=== PATIENT | female | born 1950 | race Caucasian/White ===

== ENCOUNTER 2017-03-25 16:01 | Emergency (ER) | payer OTHER ==
[2017-03-25] MEDS ORDERED: ONDANSETRON 4 MG/2 ML VIAL ONE (16:33)
[2017-03-25] MEDS ORDERED: FAMOTIDINE 20 MG/NACL/50 ML BAG IV ONE (16:33)
--- NOTE | 2017-03-25 16:38 | EDPHY ---
H & P Time Seen by Provider: 03/25/17 16:16 HPI/ROS: CHIEF COMPLAINT: Allergic reaction HISTORY OF PRESENT ILLNESS: Patient is a 66-year-old female who presents emergency department allergic reaction. She states over the past 3-4 days she has developed a nonproductive cough. It is irritating and persistent. She has also had intermittent headache and nausea. She went saw primary care physician , Dr. Almanzar earlier today. She had a negative strep screen. She was given azithromycin. She filled the prescription and approximately 1 hour after taking the medication she felt as though she was having allergic reaction. She felt throat tightness. This moved up into her tongue, lips and face. She denies worsening shortness of breath. She denies rash. She does not recall taking azithromycin previously. REVIEW OF SYSTEMS: My complete review of systems is negative except as mentioned in the HPI. Past Medical/Surgical History: Jonah's thyroiditis, hypothyroidism Past surgical history: Denies Social history: The patient does not smoke Smoking Status: Never smoked Physical Exam: Vitals noted GENERAL: No acute distress, alert. HEENT: Eyes normal to inspection, normal pharynx, no signs of dehydration. Uvula is midline. No signs of swelling. No lesions. No discharge. NECK: No thyromegaly, Mild bilateral anterior lymphadenopathy, supple. RESPIRATORY: Clear to auscultation bilaterally, no rales, rhonchi or wheezing. Normal CVS: Regular rate and rhythm, no rubs, murmurs, or gallops. ABDOMEN: Soft, nontender, nondistended, no organomegaly. Benign BACK: Normal to inspection, no CVA tenderness. SKIN: Normal color, no rash, warm, dry. No pallor. EXTREMITIES: No pedal edema, no calf tenderness, no Homans sign or cords, no joint swelling. NEURO/PSYCH: Alert and oriented, normal mood and affect, normal motor sensory exam. Constitutional: Initial Vital Signs Temperature (C) 36.7 C 03/25/17 16:05 Heart Rate 89 03/25/17 16:05 Respiratory Rate 15 03/25/17 16:05 Blood Pressure 153/92 H 03/25/17 16:05 O2 Sat (%) 98 03/25/17 16:05 O2 Delivery Mode Room Air Allergies/Adverse Reactions: epinephrine Allergy (Intermediate, Verified 04/09/12 10:26) Penicillins Allergy (Intermediate, Verified 04/09/12 10:25) Sulfa (Sulfonamide Antibiotics) [Sulfa(Sulfonamide Antibiotics)] Allergy ( Intermediate, Verified 04/09/12 10:25) BREVITOL Allergy (Intermediate, Uncoded 04/09/12 10:25) Home Medications: Medication Instructions Recorded No Medications [NO HOME 1 ea MISC 04/09/12 MEDICATIONS] Estradiol 03/25/17 Levothyroxine 03/25/17 Progesterone 03/25/17 Medical Decision Making ED Course/Re-evaluation: In the emergency department I discussed possible etiologies with the patient and her . I answered all her questions. Patient was given Benadryl 25 mg IV and Pepcid 20 mg IV. She appears well on exam I do not feel she needs Solu-Medrol. Chest x-ray was ordered. I rechecked the patient. She was doing well. No signs of allergic reaction. Chest x-ray: No acute disease noted. 1744: I rechecked the patient on numerous occasions. On recheck she was doing well. She had no shortness of breath. She had no nausea vomiting. Her abdominal exam was benign. I discussed the x-ray results. I gave her warnings prior to leaving. At this time I do not feel the patient needs antibiotics based on her chest x-ray. She will return with worsening symptoms. Differential Diagnosis: My differential includes but is not limited to bronchitis, pneumonia, viral illness, pharyngitis, strep pharyngitis, dehydration, allergic reaction, anaphylaxis - Data Points Medications Given: Discontinued Medications Diphenhydramine HCl (Benadryl Injection) 25 mg IVP EDNOW ONE Stop: 03/25/17 16:42 Last Admin: 03/25/17 16:41 Dose: 25 mg Famotidine/Sodium Chloride (Pepcid 20 Mg (Premix)) 50 mls @ 200 mls/hr IV EDNOW ONE Stop: 03/25/17 16:55 Last Admin: 03/25/17 16:41 Dose: 50 mls Ondansetron HCl (Zofran) 4 mg IVP EDNOW ONE Stop: 03/25/17 16:42 Last Admin: 03/25/17 17:08 Dose: Not Given Departure - Departure Disposition: [facility] Acute Clinical Impression: Bronchitis Condition: Good Instructions: Acute Bronchitis (ED) Additional Instructions: Return with increasing shortness of breath, fever, cough, rash, facial swelling or any other concerns. Referrals: Michael Ho MD [Primary Care Provider] - 2-3 days, if not improved
[2017-03-25] MEDS ORDERED: FAMOTIDINE 20 MG/NACL 50 ML IV ONE (16:41)
[2017-03-25] MEDS ORDERED: ONDANSETRON 4 MG/2 ML VIAL IVP ONE (16:41)
[2017-03-25 17:17] VITALS: RESP 16; O2SAT 94
[2017-03-25] MEDS ORDERED: ONDANSETRON 4MG PREPACK#2 BTL TAKEHOME ONE (17:48)
[2017-03-25 18:08] VITALS: BP 120/74; PULSE 88; TEMP 98.4
== END 2017-03-25 18:07 | disposition still patient (30) ==
DX: J40 Bronchitis, not specified as acute or chronic (principal)
CPT/HCPCS: 71020; 96374; 96375; 99284; J1200; J2405

== ENCOUNTER 2017-03-28 16:12 | Emergency (ER) | payer OTHER ==
--- NOTE | 2017-03-28 17:45 | EDPHY ---
H & P Time Seen by Provider: 03/28/17 17:37 HPI/ROS: CHIEF COMPLAINT: Allergic reaction HISTORY OF PRESENT ILLNESS: This is a 66-year-old female presenting to the emergency department complaining of allergic reaction. Patient states she was seen here on 03/25/2017 allergy related to azithromycin that she was taking for bronchitis. Patient stated she took another dose yesterday, started having similar symptoms as she did initially on the 03/25/2017 throat tightness, " feels like my face is swollen" no shortness of breath. REVIEW OF SYSTEMS: Constitutional: No fever, no chills. Eyes: No blurred vision ENT: No sore throat. Throat tightness Cardiovascular: No chest pain, no palpitations. Respiratory: No cough, no shortness of breath. Gastrointestinal: No abdominal pain, no vomiting. Genitourinary: No difficulty urinating Musculoskeletal: No back pain. Skin: No rashes. Itchy skin Neurological: No headache. Smoking Status: Never smoked Physical Exam: General Appearance: Alert, no distress. Eyes: Pupils equal and round no pallor or injection. ENT, Mouth: Mucous membranes moist. No angioedema Respiratory: There are no retractions, nonlabored respiratory effort lungs are clear to auscultation. Cardiovascular: Regular rate and rhythm. Gastrointestinal: Abdomen is soft and nontender, no masses, bowel sounds normal. Neurological: No focal deficits. Cranial nerves intact Skin: Warm and dry, no rashes. Musculoskeletal: Neck is supple nontender. Extremities: symmetrical, full range of motion. Psychiatric: Patient is oriented X 3, there is no agitation. Acting appropriate Constitutional: Initial Vital Signs Temperature (C) 36.6 C 03/28/17 16:16 Heart Rate 90 03/28/17 16:16 Respiratory Rate 18 03/28/17 16:16 Blood Pressure 142/99 H 03/28/17 16:16 O2 Sat (%) 97 03/28/17 16:16 O2 Delivery Mode Room Air Allergies/Adverse Reactions: epinephrine Allergy (Intermediate, Verified 03/28/17 16:15) Penicillins Allergy (Intermediate, Verified 03/28/17 16:15) Sulfa (Sulfonamide Antibiotics) [Sulfa(Sulfonamide Antibiotics)] Allergy ( Intermediate, Verified 03/28/17 16:15) azithromycin Allergy (Verified 03/28/17 16:15) BREVITOL Allergy (Intermediate, Uncoded 04/09/12 10:25) Home Medications: Medication Instructions Recorded Levothyroxine 03/25/17 Progesterone 03/25/17 predniSONE 40 mg PO DAILY #10 tab 03/28/17 Medical Decision Making ED Course/Re-evaluation: Discussed ED plan of care: IV Benadryl IV Solu-Medrol IV ranitidine 1814: Patient re-evaluation patient states feeling better no short of breath" I do not feel like my throat is tight, I do not feel like my face is swollen " 1820: Discharge home-->stable, discussed discharge instructions the patient Differential Diagnosis: Other differential diagnosis considered but not limited to anaphylaxis, hypoxia , and angioedema - Data Points Medications Given: Discontinued Medications Diphenhydramine HCl (Benadryl Injection) 25 mg IVP EDNOW ONE Stop: 03/28/17 17:47 Last Admin: 03/28/17 18:07 Dose: 25 mg Methylprednisolone Sodium Succinate (Solu-Medrol) 125 mg IVP EDNOW ONE Stop: 03/28/17 17:47 Last Admin: 03/28/17 18:07 Dose: 125 mg Ranitidine HCl (Zantac) 50 mg IVP EDNOW ONE Stop: 03/28/17 17:47 Last Admin: 03/28/17 18:08 Dose: 50 mg Departure - Departure Disposition: Home, Routine, Self-Care Clinical Impression: Allergic reaction Qualifiers: Encounter type: subsequent encounter Qualified Code(s): T78.40XD - Allergy, unspecified, subsequent encounter Condition: Good Instructions: Urticaria (ED), Antibiotic Medication Allergy (ED) Additional Instructions: Discussed additional instructions 1. Continue taking Benadryl 25-50 mg every 6-8 hours as needed for the next few days 2. You can also take Pepcid or Zantac daily as this also is a histamine tam to decrease allergic reaction Referrals: Michael Ho MD [Primary Care Provider] - As per Instructions Prescriptions: predniSONE 40 mg PO DAILY #10 tab
[2017-03-28] MEDS ORDERED: methylPREDNISolone SOD SUCC 125 MG/2 ML VIAL IVP ONE (17:46)
[2017-03-28] MEDS ORDERED: RANITIDINE 50 MG/2 ML VIAL IVP ONE (17:46)
[2017-03-28 18:27] VITALS: BP 143/73; PULSE 80; RESP 16; TEMP 97.7; O2SAT 98
== END 2017-03-28 18:25 | disposition home or self-care (01) ==
DX: T78.40XD Allergy, unspecified, subsequent encounter (principal)
CPT/HCPCS: 96374; 96375; 99284; J1200; J2780

== ENCOUNTER 2017-11-28 09:36 | Emergency (ER) | payer OTHER ==
[2017-11-28 09:49] VITALS: RESP 16
--- NOTE | 2017-11-28 10:25 | EDPHY ---
H & P Stated Complaint: L sided neck pain x 3 wks after turning head;radiates to shoulder/back;chir Time Seen by Provider: 11/28/17 10:24 HPI/ROS: HPI: This is a 67-year-old female who presents with Chief Complaint: L sided neck pain x 3 wks after turning head;radiates to shoulder/back;chir Location: Left-sided neck Quality: Pain Duration: 3 weeks Signs and Symptoms: No bleeding, + radiation, no numbness, no weakness, no tingling, no incontinence, no decreased range of motion, no swelling, + pain Timing: Waxes and wane Severity: Moderate Context: Patient has a history of Jonah's was skiing approximately 3 weeks ago when she her to [place] coming up on her left side and she quickly turned her neck. She felt immediate discomfort, that was radiating in nature to the left shoulder and mid back. She continued her run and skied for several more hours. Within 1-2 days, she developed neck spasms on the left side that worsened with turning her neck to the left. She has been trying to performs stretching exercises, taking [id number] NSAIDs with transient relief. She went to the chiropractor yesterday and had an adjustment performed. She felt relief for 4 hr. Upon waking up this morning she felt left-sided, muscle spasm and discomfort again. She is requesting imaging of her neck. She denies radiation/paresthesias/headache. Her also return from [place] and had a viral illness and she is requesting influenza test. She denies fever/chills/ fatigue/cough/neck stiffness. Modifying Factors: See above Comment: ROS: see HPI Constitutional: No fever, no chills, no weight loss Eyes: No blurred vision Respiratory: No shortness of breath, no cough Cardiovascular: No chest pain Gastrointestinal: No nausea, no vomiting no diarrhea Genitourinary: No dysuria Extremities: No myalgias Neurologic: No weakness, no numbness Skin: No rashes Hematologic: No bruising, no bleeding MEDICAL/SURGICAL/SOCIAL HISTORY: Medical history: Jonah's Surgical history: Denies Social history: . Retired CONSTITUTIONAL: Well-appearing elderly white female who is physically fit, awake and alert, no obvious distress HEENT: Atraumatic and normocephalic. NECK: supple, no midline tenderness, flexion 45 degrees, extension 45 degrees, right and left lateral flexion 45 degrees. No meningismus. Mild reproducible tenderness on the left lateral muscles of her neck; no obvious spasm. Cardiovascular: Normal S1/S2, regular rate, regular rhythm, without murmur rub or gallop. PULMONARY/CHEST: Symmetrical and nontender. no crepitus. Clear to auscultation bilaterally. Good air movement. No accessory muscle usage. ABDOMEN: Soft, nondistended, nontender, no ecchymosis. BACK: No midline tenderness, no paraspinous spasm, deep tendon reflexes 2/2, no pain with straight leg raise EXTREMITIES: 2/2 pulses, no deformities, no clubbing, no cyanosis or edema. NEUROLOGICAL: no focal neuro deficits. GCS 15. Light touch sensation intact. SKIN: Warm and dry, no erythema. no rash. Good capillary refill. Source: Patient Exam Limitations: No limitations - Personal History Current Tetanus Diphtheria and Acellular Pertussis (TDAP): Yes - Medical/Surgical History Hx Asthma: No Hx Chronic Respiratory Disease: No Hx Diabetes: No Hx Cardiac Disease: No Hx Renal Disease: No Hx Cirrhosis: No Hx Alcoholism: No Hx HIV/AIDS: No Hx Splenectomy or Spleen Trauma: No Other PMH: Hashimotos - Social History Smoking Status: Never smoked Constitutional: Initial Vital Signs Temperature (C) 36.5 C 11/28/17 09:40 Heart Rate 86 11/28/17 09:40 Respiratory Rate 16 11/28/17 09:40 Blood Pressure 135/103 H 11/28/17 09:40 O2 Sat (%) 98 11/28/17 09:40 O2 Delivery Mode Room Air Allergies/Adverse Reactions: epinephrine Allergy (Intermediate, Verified 11/28/17 09:45) Penicillins Allergy (Intermediate, Verified 11/28/17 09:45) Sulfa (Sulfonamide Antibiotics) [Sulfa(Sulfonamide Antibiotics)] Allergy ( Intermediate, Verified 11/28/17 09:45) azithromycin Allergy (Verified 11/28/17 09:45) BREVITOL Allergy (Intermediate, Uncoded 04/09/12 10:25) Home Medications: Medication Instructions Recorded Levothyroxine 03/25/17 Lidocaine 5% [Lidoderm 5% Patch 1 ea TD DAILY #7 patch 11/28/17 (*)] methylPREDNISolone [Medrol Dose 1 each PO AD #0 ea 11/28/17 Ferny] Medical Decision Making - Diagnostics Imaging Results: Imaging Impressions Cervical Spine X-Ray 11/28/17 10:30 Impression: 1. Negative for fracture. 2. Straightening of the cervical curvature suggests muscle spasm. 3. Minimal spondylolisthesis is noted. If symptoms persist, MRI could be considered for further evaluation. ED Course/Re-evaluation: Cervical x-rays, influenza test per patient request although has no symptoms, IM medication, topical medication ordered Patient given IM Decadron 8 mg and Lidoderm patch applied to the left side of her neck. No signs of neurovascular compromise/tenting of skin/compartment syndrome/ extremities and joints examined above and below area of concern and are neurovascularly intact. Cervical x-ray my read shows straightening of lordosis consistent with muscle spasm; minimal degenerative disc disease Reassessed patient who reports she has adequate relief This patient was seen under the supervision of my secondary supervising physician. I evaluated care for this patient independently. Differential Diagnosis: Differential diagnosis includes but is not limited to cervical spondylosis, cervical muscle spasm, cervical strain, cervical degenerative disc disease. - Data Points Laboratory Results: 11/28/17 10:49 Nasal Influenza A PCR Pending Nasal Influenza B PCR Pending Medications Given: Lidocaine (Lidoderm 5%) 1 ea TD DAILY FORD Stop: 05/28/18 08:59 Last Admin: 11/28/17 10:53 Dose: 1 ea Discontinued Medications Dexamethasone (Decadron Injection) 8 mg IM EDNOW ONE Stop: 11/28/17 10:31 Last Admin: 11/28/17 10:52 Dose: 8 mg Departure - Departure Disposition: Home, Routine, Self-Care Clinical Impression: Strain of cervical portion of left trapezius muscle, Cervical paraspinal muscle spasm Condition: Good Instructions: Cervical Strain (ED) Additional Instructions: Cervical x-ray today shows: 1. Negative for fracture. 2. Straightening of the cervical curvature suggests muscle spasm. 3. Minimal spondylolisthesis is noted. Please take 6 days of Medrol Dosepak. Encourage fluid intake while taking steroids. Continue to stretch your muscles and take Tylenol 650 mg every 4 hours and/or Ibuprofen 600 mg every 8 hours with food as needed for pain. Follow up with [facility] or PCP in 1-2 weeks if symptoms persist or worsen at which time they will evaluate and recommend with you if conservative management versus MRI cervical spine outpatient is indicated. Referrals: Michael Ho MD [Primary Care Provider] - As per Instructions Prescriptions: Lidocaine 5% [Lidoderm 5% Patch (*)] 1 ea TD DAILY #7 patch methylPREDNISolone [Medrol Dose Ferny] 1 each PO AD #0 ea
[2017-11-28] MEDS ORDERED: DEXAMETHASONE 10 MG/ML VIAL IM ONE (10:30)
[2017-11-28] MEDS ORDERED: LIDOCAINE 5% 1 EA PATCH TD ONE (10:40)
[2017-11-28 11:38] VITALS: BP 145/84; PULSE 80; TEMP 98.1; O2SAT 94
[2017-11-28] MEDS ORDERED: PATCH REMOVAL 1 EA PATCH TD SCH (21:00)
[2017-11-29] MEDS ORDERED: LIDOCAINE 5% 1 EA PATCH TD SCH (09:00)
== END 2017-11-28 11:37 | disposition home or self-care (01) ==
DX: S16.1XXA Strain of muscle, fascia and tendon at neck level, initial encounter (principal); X58.XXXA Exposure to other specified factors, initial encounter
CPT/HCPCS: 72040; 96372; 99284; J1100

== ENCOUNTER → 2017-12-01 | Outpatient (CLI) | payer OTHER | LOC: FIMAGING 15:11 | PROVIDERS: ATTEND Family Medicine Sports Medicine | DX: M50.30 Other cervical disc degeneration, unspecified cervical region (principal); M12.88 Other specific arthropathies, not elsewhere classified, other specified site; M99.71 Connective tissue and disc stenosis of intervertebral foramina of cervical region ==

== ENCOUNTER 2018-08-30 06:54 | Observation (INO) | payer OTHER ==
[2018-08-30] MEDS ORDERED: DOCUSATE SODIUM 100 MG CAP PO ONE (07:36)
--- NOTE | 2018-08-30 07:42 | EDPHY ---
H & P Time Seen by Provider: 08/30/18 07:29 HPI/ROS: CHIEF COMPLAINT: Constipation HISTORY OF PRESENT ILLNESS: The patient is a 68-year-old female who had a facial pill surgery last week. She took Percocet for 3 days because of the procedure. She states her face, although significantly red peeling, is healing normally. Patient states she has tried numerous holistic interventions including supplements and meditation. She has not had a bowel movement for 8 days. She feels bloated. She has abdominal discomfort because of this. She denies measured fever. No vomiting. No nausea. She is still able to urinate. REVIEW OF SYSTEMS: 10 systems were reveiwed and are negative with the exception of the elements mentioned in the history of present illness. Past Medical/Surgical History: Includes Jonah's thyroiditis Past surgical history: Facial surgery Social history: Patient does not smoke Smoking Status: Never smoked Physical Exam: Vitals noted. 37.0, 103 GENERAL: No acute distress, alert. HEENT: Eyes normal to inspection, normal pharynx, no signs of dehydration. The patient has significant redness and peeling diffusely on her face NECK: Normal, supple. RESPIRATORY: Clear to auscultation bilaterally, no rales, rhonchi or wheezing. CVS: Regular rate and rhythm, no rubs, murmurs, or gallops. ABDOMEN: Soft, nontender, no organomegaly. Patient has no significant distension. Positive bowel sounds. BACK: Normal to inspection, no CVA tenderness. SKIN: Normal color, no rash, warm, dry. No pallor. EXTREMITIES: No pedal edema, no joint swelling. NEURO/PSYCH: Alert and oriented, normal mood and affect, normal motor sensory exam. Constitutional: Initial Vital Signs Temperature (C) 37.0 C 08/30/18 06:56 Heart Rate 103 H 08/30/18 06:56 Respiratory Rate 18 08/30/18 06:56 Blood Pressure 126/90 H 08/30/18 06:56 O2 Sat (%) 97 08/30/18 06:56 O2 Delivery Mode Room Air Allergies/Adverse Reactions: epinephrine Allergy (Intermediate, Verified 08/30/18 06:58) Penicillins Allergy (Intermediate, Verified 08/30/18 06:58) Sulfa (Sulfonamide Antibiotics) [Sulfa(Sulfonamide Antibiotics)] Allergy ( Intermediate, Verified 08/30/18 06:58) azithromycin Allergy (Verified 08/30/18 06:58) BREVITOL Allergy (Intermediate, Uncoded 08/30/18 06:58) Home Medications: Medication Instructions Recorded Docusate Sodium [Colace 100 MG (*)] 100 mg PO BID #20 cap 08/30/18 Medical Decision Making - Diagnostics Imaging Results: Imaging Impressions Abdomen/Pelvis CT 08/30/18 09:55 Impression: 1. Significant stool within the rectal vault with moderate stool in the remainder of the colon, consistent with constipation. Might consider disimpaction. 2. Nonspecific hypodense lesions within the right hepatic lobe, the largest measuring 3.8 x 1.9 cm. These may represent hepatic masses versus focal fat ( though not in a typical location for this). Recommend either triphasic CT or MRI. 3. Lobulated uterus, likely related to underlying fibroid disease. Findings and recommendations discussed with ARLETTE YEBOAH at 1038 hour, 08/30/2018. ED Course/Re-evaluation: In the emergency department I discussed possible etiologies with the patient. I answered all her questions. She was given Colace 100 mg orally. She was given a fleets enema. Patient did not want to receive GoLYTELY. After receiving the enema the patient was re-evaluated. She continued to feel constipated. Her abdomen was still soft nontender. The patient did not want an IV placed. She had no laboratory shows studies drawn. A 2nd enema was ordered. Patient began to have rectal cramping during administration and this was discontinued. The nurse reported that catheter went in freely. There was no resistance or signs of stool impaction. 950: I rechecked the patient. She was having rectal cramping. She complained of abdominal discomfort. She did not want an IV placed. She did accept oral Zofran and GoLYTELY. She stated that she has previously had nausea and vomiting with go likely but she is willing to attend medication. Because of her ongoing symptoms CT scan was ordered. She consented to this. Abdominal CT: Please refer the dictated report. Patient has noted hepatic lesions. These will need further follow-up. Patient is also noted to have constipation. 1100: Patient still has abdominal discomfort. She has mild diffuse tenderness to palpation. Differential Diagnosis: My differential includes but is not limited to small-bowel obstruction, perforation, intussusception, volvulus, mass, malignancy, constipation - Data Points Medications Given: Discontinued Medications Docusate Sodium (Colace) 100 mg PO EDNOW ONE Stop: 08/30/18 07:37 Last Admin: 08/30/18 08:04 Dose: 100 mg Ibuprofen (Motrin) 600 mg PO EDNOW ONE Stop: 08/30/18 10:09 Last Admin: 08/30/18 10:08 Dose: 600 mg Ondansetron HCl (Zofran Odt) 4 mg PO EDNOW ONE Stop: 08/30/18 09:55 Last Admin: 08/30/18 10:06 Dose: 4 mg Departure - Departure Disposition: [facility] Inpatient Acute Clinical Impression: Abdominal pain Qualifiers: Abdominal location: generalized Qualified Code(s): R10.84 - Generalized abdominal pain Constipation Qualifiers: Constipation type: unspecified constipation type Qualified Code(s): K59.00 - Constipation, unspecified Condition: Fair Instructions: Constipation (DC), Abdominal Pain (ED) Additional Instructions: Return with increasing pain, distention or any other concerns. Referrals: Michael Ho MD [Primary Care Provider] - 2-3 days, if not improved Prescriptions: Docusate Sodium [Colace 100 MG (*)] 100 mg PO BID #20 cap
[2018-08-30] MEDS ORDERED: PEG 3350/NA SULF,BICARB,CL/KCL (GAVILYTE-G) 4000 ML BTL PO ONE (09:54)
[2018-08-30] MEDS ORDERED: ONDANSETRON DISINTEGRATING 4 MG TAB PO ONE (09:54)
[2018-08-30] MEDS ORDERED: IBUPROFEN 600 MG TAB PO ONE ×2 (09:55→10:08)
[2018-08-30] MEDS ORDERED: ONDANSETRON DISINTEGRATING 4 MG TAB ONE (09:55)
[2018-08-30] MEDS ORDERED: NS 500 ML IV ONE (11:03)
[2018-08-30] MEDS ORDERED: ONDANSETRON DISINTEGRATING 4 MG TAB PO PRN (11:20)
[2018-08-30] MEDS ORDERED: ONDANSETRON 4 MG/2 ML VIAL IVP PRN (11:20)
[2018-08-30] MEDS ORDERED: POLYETHYLENE GLYCOL 3350 17 GM PKT PO PRN (11:21)
[2018-08-30] MEDS ORDERED: MAGNESIUM HYDROXIDE 30 ML UDCUP PO PRN (11:21)
[2018-08-30] MEDS ORDERED: BISACODYL 10 MG SUPP PR PRN (11:21)
[2018-08-30] MEDS ORDERED: LACTULOSE 20 GM/30 ML UDCUP PO PRN (11:21)
[2018-08-30] MEDS ORDERED: MAGNESIUM CITRATE 300 ML BOTTLE PO ONE (11:22)
[2018-08-30 12:00] LABS: PLATELET COUNT 339 10^3/uL (150-400)
--- NOTE | 2018-08-30 13:59 | PDGENHP ---
History and Physical - Chief Complaint Constipation - History of Present Illness Jessica Sosa is a 68 yo F with no significant PMHx who presents to [facility] for constipation. She reports that she had facial peel surgery last Monday and was prescribed Percocet whic she took for 3 days because of pain from the procedure. She reports that she has not had a BM now for 8 days. She has tried multiple holistic interventions including supplements and abdominal massage. She reports she has been passing gas and has been experiencing bloating and lower abdominal cramping. She denies f/c, n/v, chest pain, sob. History Information - Allergies/Home Medication List Allergies/Adverse Reactions: epinephrine Allergy (Intermediate, Verified 08/30/18 06:58) Penicillins Allergy (Intermediate, Verified 08/30/18 06:58) Sulfa (Sulfonamide Antibiotics) [Sulfa(Sulfonamide Antibiotics)] Allergy ( Intermediate, Verified 08/30/18 06:58) azithromycin Allergy (Verified 08/30/18 06:58) BREVITOL Allergy (Intermediate, Uncoded 08/30/18 06:58) Home Medications: Levothyroxine [Synthroid 88 mcg (*)] 88 mcg PO DAILY06 08/30/18 [Last Taken ] Lidocaine 5% [Lidocaine 5% Oint] 1 crystal TP DAILY 08/30/18 [Last Taken 08/29/18] I have personally reviewed and updated: family history, medical history, social history, surgical history - Past Medical History no pertinent PMH - Surgical History Additional surgical history: Facial peel - Family History Positive for: non-pertinent - Social History Smoking Status: Never smoked Review of Systems Review of Systems: ROS: 10pt was reviewed & negative except for what was stated in HPI & below Physical Exam Physical Exam: Temp Pulse Resp BP Pulse Ox 36.6 C 69 16 124/86 H 98 08/30/18 12:39 08/30/18 12:39 08/30/18 12:39 08/30/18 12:39 08/30/18 12:39 Lab Data & Imaging Review 08/30/18 11:54 08/30/18 11:54 WBC 9.04 10^3/uL (3.80-9.50) 08/30/18 11:54 RBC 5.01 10^6/uL (4.18-5.33) 08/30/18 11:54 Hgb 14.0 g/dL (12.6-16.3) 08/30/18 11:54 Hct 42.2 % (38.0-47.0) 08/30/18 11:54 MCV 84.2 fL (81.5-99.8) 08/30/18 11:54 MCH 27.9 pg (27.9-34.1) 08/30/18 11:54 MCHC 33.2 g/dL (32.4-36.7) 08/30/18 11:54 RDW 14.0 % (11.5-15.2) 08/30/18 11:54 Plt Count 339 10^3/uL (150-400) 08/30/18 11:54 MPV 8.9 fL (8.7-11.7) 08/30/18 11:54 Neut % (Auto) 73.4 % (39.3-74.2) 08/30/18 11:54 Lymph % (Auto) 16.9 % (15.0-45.0) 08/30/18 11:54 Cole % (Auto) 9.0 % (4.5-13.0) 08/30/18 11:54 Eos % (Auto) 0.3 % (0.6-7.6) L 08/30/18 11:54 Baso % (Auto) 0.1 % (0.3-1.7) L 08/30/18 11:54 Nucleat RBC Rel Count 0.0 % (0.0-0.2) 08/30/18 11:54 Absolute Neuts (auto) 6.63 10^3/uL (1.70-6.50) H 08/30/18 11:54 Absolute Lymphs (auto) 1.53 10^3/uL (1.00-3.00) 08/30/18 11:54 Absolute Monos (auto) 0.81 10^3/uL (0.30-0.80) H 08/30/18 11:54 Absolute Eos (auto) 0.03 10^3/uL (0.03-0.40) 08/30/18 11:54 Absolute Basos (auto) 0.01 10^3/uL (0.02-0.10) L 08/30/18 11:54 Absolute Nucleated RBC 0.00 10^3/uL (0-0.01) 08/30/18 11:54 Immature Gran % 0.3 % (0.0-1.1) 08/30/18 11:54 Immature Gran # 0.03 10^3/uL (0.00-0.10) 08/30/18 11:54 Sodium 137 mEq/L (135-145) 08/30/18 11:54 Potassium 4.1 mEq/L (3.3-5.0) 08/30/18 11:54 Chloride 101 mEq/L (97-110) 08/30/18 11:54 Carbon Dioxide 29 mEq/l (22-31) 08/30/18 11:54 Anion Gap 7 mEq/L (6-14) 08/30/18 11:54 BUN 17 mg/dL (7-23) 08/30/18 11:54 Creatinine 0.8 mg/dL (0.6-1.0) 08/30/18 11:54 Estimated GFR > 60 08/30/18 11:54 Glucose 103 mg/dL (70-100) H 08/30/18 11:54 Calcium 8.9 mg/dL (8.5-10.4) 08/30/18 11:54 Total Bilirubin 0.6 mg/dL (0.1-1.4) 08/30/18 11:54 Conjugated Bilirubin 0.1 mg/dL (0.0-0.5) 08/30/18 11:54 Unconjugated Bilirubin 0.5 mg/dL (0.0-1.1) 08/30/18 11:54 AST 38 IU/L (14-46) 08/30/18 11:54 ALT 51 IU/L (9-52) 08/30/18 11:54 Alkaline Phosphatase 77 IU/L (38-126) 08/30/18 11:54 Total Protein 6.4 g/dL (6.3-8.2) 08/30/18 11:54 Albumin 3.6 g/dL (3.5-5.0) 08/30/18 11:54 Lipase 45 IU/L (23-300) 08/30/18 11:54 Assessment & Plan Assessment: Abdominal pain (Acute) Constipation (Acute) - 2/2 to opiate medications given periprocedural - CT A/P on admission shows stool in rectal vault w/ moderate stool in remainder of colon, consistent with constipation, no SBO or ileus noted - S/p Mg Citrate, Enema in ED without effect - Ordered Polyethylene Glycol (GoLytely) in ED, will continue - Bowel Protocol ordered as well - If not effective will give additional Mg Citrate and Enema/suppository Hepatic Lesions - Incidental finding on CT, showing hypodense lesions in R hepatic lobe, 3.8x1.9 cm, representing hepatic mass vs. - Will f/u as outpatient with Triphasic CT vs. MRI to further evaluate PPx: SCDs FEN: NPO, water is ok Code: FULL Dispo: Admit to Observation
[2018-08-30] MEDS ORDERED: LORazepam 2 MG/ML INJ IVP ONE (17:07)
[2018-08-30] MEDS: ACETAMINOPHEN 325 MG TAB PO PRN (21:01)
[2018-08-30] MEDS: SENNOSIDES/DOCUSATE SODIUM TAB PO SCH (21:01)
[2018-08-31] MEDS: ACETAMINOPHEN 325 MG TAB PO PRN (07:51)
[2018-08-31] MEDS: SENNOSIDES/DOCUSATE SODIUM TAB PO SCH ×2 (08:35→20:05)
--- NOTE | 2018-08-31 09:58 | ASMTCMCOM ---
CM Note CM Note Notes: Reviwed chart, pt came in for constipation secondary to percocet prescribed after a facial peel procedure. Anticipate she will dc home independent when medically stable. CM available for any changes. DC Plan: Independent Date Signed: 08/31/2018 09:58 AM Electronically Signed By:Angelina Quintanilla RN
--- NOTE | 2018-08-31 13:45 | PDDCSUM ---
Discharge Summary Discharge Summary: Date of Admission: 08/30/2018 Date of Discharge: 08/31/2018 Consults: N/A Procedure: CT A/P Hospital Course Problem List: Abdominal pain (Acute) Constipation (Acute) - 2/2 to opiate medications given periprocedural - CT A/P on admission shows stool in rectal vault w/ moderate stool in remainder of colon, consistent with constipation, no SBO or ileus noted - S/p Mg Citrate, Enema in ED without effect - Ordered Polyethylene Glycol (GoLytely) in ED, patient had >5 BMs overnight - Continue Senna/Colace BID, Miralax qd at home Hepatic Lesions - Incidental finding on CT, showing hypodense lesions in R hepatic lobe, 3.8x1.9 cm, representing hepatic mass vs. - Will f/u as outpatient with Triphasic CT vs. MRI to further evaluate Time spent on discharge was >35 minutes with >50% of time spent on patient education and counseling
--- NOTE | 2018-08-31 14:26 | HOSPPROG ---
Hospitalist Progress Note Assessment/Plan: Abdominal pain (Acute) Constipation (Acute) - 2/2 to opiate medications given periprocedural - CT A/P on admission shows stool in rectal vault w/ moderate stool in remainder of colon, consistent with constipation, no SBO or ileus noted - S/p Mg Citrate, Enema in ED without effect - Ordered Polyethylene Glycol (GoLytely) in ED, patient had >5 BMs overnight - Continue Senna/Colace BID, Miralax qd Hepatic Lesions - Incidental finding on CT, showing hypodense lesions in R hepatic lobe, 3.8x1.9 cm, representing hepatic mass vs. - Will f/u as outpatient with Triphasic CT vs. MRI to further evaluate Dispo: Patient having bowel incontinence and not able to manage at home due to difficult access to restroom, will monitor overnight and d/c in the morning if improved Subjective: Pateint reports bowle incontinence Objective: Vital Signs Temp Pulse Resp BP Pulse Ox 37.4 C 80 16 123/90 H 89 L 08/31/18 11:10 08/31/18 11:10 08/31/18 11:10 08/31/18 11:10 08/31/18 11:10 Laboratory Results 08/30/18 11:54 08/30/18 11:54 08/30/18 08/31/18 09/01/18 05:59 05:59 05:59 Intake Total 500 Output Total 50 Balance 450 - Physical Exam Constitutional: no apparent distress Eyes: PERRL Ears, Nose, Mouth, Throat: moist mucous membranes Cardiovascular: regular rate and rhythym Respiratory: no respiratory distress Gastrointestinal: soft, non-tender abdomen Skin: abrasion Musculoskeletal: full muscle strength Neurologic: AAOx3 Psychiatric: interacting appropriately ICD10 Worksheet Patient Problems: Problems Problem Status Onset Abdominal pain Acute Constipation Acute
[2018-09-01] MEDS: SENNOSIDES/DOCUSATE SODIUM TAB PO SCH (08:25)
--- NOTE | 2018-09-01 12:38 | HOSPPROG ---
Hospitalist Progress Note Assessment/Plan: Abdominal pain (Acute) Constipation (Acute) - 2/2 to opiate medications given periprocedural - CT A/P on admission shows stool in rectal vault w/ moderate stool in remainder of colon, consistent with constipation, no SBO or ileus noted - S/p Mg Citrate, Enema in ED without effect - S/p Polyethylene Glycol (GoLytely) in ED, patient had >5 BMs overnight yesterday - Now patent complaining of bowel incontinence with loose BMs, will d/c laxatives today and continue to observe Hepatic Lesions - Incidental finding on CT, showing hypodense lesions in R hepatic lobe, 3.8x1.9 cm, representing hepatic mass vs. - Will f/u as outpatient with Triphasic CT vs. MRI to further evaluate Dispo: Patient having bowel incontinence and not able to manage at home due to difficult access to restroom, will monitor overnight and d/c in the morning if improved off of laxatives Subjective: Patient reports 2 episodes of bowel incontinence overnight Objective: Vital Signs Temp Pulse Resp BP Pulse Ox 36.5 C 72 18 137/94 H 96 09/01/18 12:00 09/01/18 12:00 09/01/18 12:00 09/01/18 12:00 09/01/18 12:00 Laboratory Results 08/30/18 11:54 08/30/18 11:54 08/31/18 09/01/18 09/02/18 05:59 05:59 04:59 Intake Total 500 Output Total 50 500 Balance 450 -500 - Physical Exam Constitutional: no apparent distress Eyes: PERRL Ears, Nose, Mouth, Throat: moist mucous membranes Cardiovascular: regular rate and rhythym Respiratory: no respiratory distress Gastrointestinal: soft, non-tender abdomen Genitourinary: no bladder tenderness Skin: abrasion Musculoskeletal: full muscle strength Neurologic: AAOx3 Psychiatric: interacting appropriately ICD10 Worksheet Patient Problems: Problems Problem Status Onset Abdominal pain Acute Constipation Acute
[2018-09-02] MEDS ORDERED: LEVOTHYROXINE 88 MCG TAB PO SCH (06:00)
[2018-09-02 07:14] VITALS: BP 114/84
[2018-09-02] MEDS ORDERED: Lidocaine 5% [Lidocaine 5% Oint] 1 APP TP SCH (09:00)
--- NOTE | 2018-09-02 11:16 | ASMTLACE ---
SANDRAE Length of stay for Answers: 3 days current admission Acuity / Level of Answers: No Care: Did the patient have an inpatient admission? Comorbidities - select Answers: Other Notes: Jonah thyroiditis all that apply # of Emergency department Answers: 1-2 visits in the last 6 months Score: 5 Date Signed: 09/02/2018 11:15 AM Electronically Signed By:Tabatha Collins RN
--- NOTE | 2018-09-02 11:24 | ASDISCHSUM ---
Discharge Information Plan Status:Home with No Needs Medically Cleared to Leave:09/02/2018 Discharge Date:09/02/2018 10:34 AM CM D/C Disposition:Home, Routine, Self-Care ADT D/C Disposition:Home, Routine, Self-Care Projected Discharge Date:09/02/2018 10:34 AM Transportation at D/C:Family Discharge Delay Reason: Follow-Up Date:09/02/2018 10:34 AM Discharge Slot:1 - 8:01 am - 12:00 noon Final Diagnosis:Abdominal pain, constipation, hepatic lesions Placement Information Patient Contact Information Contact Name:WALI Relationship:Daughter Address: Work Phone: City: [facility] Phone: State/Zip Code:[place] Email: Financial Information Financial Class:Medicare Advantage Plans Primary Plan Desc:[facility] [employer] PL[employer] Primary Plan Number:[id number] Secondary Plan Desc: Secondary Plan Number: Assessment Information LACE LACE Length of stay for Answers: 3 days current admission Acuity / Level of Answers: No Care: Did the patient have an inpatient admission? Comorbidities - select Answers: Other Notes: Jonah thyroiditis all that apply # of Emergency department Answers: 1-2 visits in the last 6 months Score: 5 Date Signed: 09/02/2018 11:15 AM Electronically Signed By:Tabatha Collins RN [facility] CM Progress Note CM Note CM Note Notes: Reviwed chart, pt came in for constipation secondary to percocet prescribed after a facial peel procedure. Anticipate she will dc home independent when medically stable. CM available for any changes. DC Plan: Independent Date Signed: 08/31/2018 09:58 AM Electronically Signed By:Angelina Quintanilla RN Case Management Discharge Plan Note Case Management Discharge Discharge Order Complete? Answers: Yes Patient to Obtain Answers: via Family Medications Transportation Arranged Answers: Family/Friends Transport will Pick (Date 09/02/2018 12:00 AM & Time) EMTALA Complete Answers: No Notes: N/A Case Management Transport Answers: No Notes: N/A Form Complete Faxed Final Orders Answers: No Notes: N/A Agency/Facility Transfer Answers: No Notes: N/A Report Printed & Faxed to Receiving Agency Family Notified Answers: Yes Notes: Pt to notify Discharge Comments Notes: Reviewed chart regarding discharge plan of care, pt's progress. Pt to discharge home independently with no identified needs. CM attempted to have pt sign IM/MON forms, missed pt. Pt left prior to signing. Pt to follow up as directed. CM available for any further issues or concerns. Discharge Plan: Home independently Date Signed: 09/02/2018 11:23 AM Electronically Signed By:Tabatha Collins RN Intervention Information Intervention Type:MON-Not Delivered Date of Service:09/02/2018 11:18 AM Patient Type:Observation Staff Member:TEO Collins Taylor Hours: Discipline: Severity: Comment:Missed pt. Pt left prior to signing MO ON. Intervention Type:IM-Pt. Not Available Date of Service:09/02/2018 11:19 AM Patient Type:Observation Staff Member:TEO Collins Taylor Hours: Discipline: Severity: Comment:Missed pt. Pt left prior to signing IM .
--- NOTE | 2018-09-02 13:00 | PDDCSUM ---
Discharge Summary Discharge Summary: Date of Admission: 08/30/2018 Date of Discharge: 09/02/2018 Consults: N/A Procedures: CT A/P Followup: PCP Hospital Course Problem List: Abdominal pain (Acute) Constipation (Acute) - 2/2 to opiate medications given periprocedural - CT A/P on admission shows stool in rectal vault w/ moderate stool in remainder of colon, consistent with constipation, no SBO or ileus noted - S/p Mg Citrate, Enema in ED without effect - S/p Polyethylene Glycol (GoLytely) in ED, patient had >5 BMs overnight yesterday - Now patent complaining of bowel incontinence with loose BMs, d/c laxatives today and continue to observe Bowel Incontinence - Reports episodes of bowel incontinence after bowel prep - Discussed increasing fiber in diet - Rectal exam performed this morning with normal tone Hepatic Lesions - Incidental finding on CT, showing hypodense lesions in R hepatic lobe, 3.8x1.9 cm, representing hepatic mass vs. - Discussed with patient who will f/u as outpatient with PCP for Triphasic CT vs. MRI to further evaluate Time spent on discharge was >35 minutes with >50% of time spent on patient education and counseling.
== END 2018-09-02 10:34 | disposition home or self-care (01) ==
LOC: F3E 12:05
PROVIDERS: ADMIT Internal Medicine; ATTEND Internal Medicine
DX: K59.00 Constipation, unspecified (principal); R10.84 Generalized abdominal pain; E06.3 Autoimmune thyroiditis
CPT/HCPCS: 74176; 96374; 99285; G0378; J2060

== ENCOUNTER → 2018-09-04 | Outpatient (CLI) | payer OTHER | LOC: FIMAGING 12:26 | PROVIDERS: ATTEND Family Medicine | DX: K59.00 Constipation, unspecified (principal); R39.198 Other difficulties with micturition ==

== ENCOUNTER → 2018-12-31 | Outpatient (CLI) | payer OTHER | LOC: FIMAGING 08:01 | PROVIDERS: ATTEND Family Medicine | DX: R91.8 Other nonspecific abnormal finding of lung field (principal); E06.3 Autoimmune thyroiditis ==

== ENCOUNTER → 2019-01-10 | Outpatient (CLI) | payer OTHER ==
[~2019-01-10] MED LIST: GADOBUTROL 10 ML VIAL IVP ONE
== END ==
LOC: FIMAGING 15:19
PROVIDERS: ATTEND Family Medicine
DX: R93.2 Abnormal findings on diagnostic imaging of liver and biliary tract (principal); K76.89 Other specified diseases of liver; N28.1 Cyst of kidney, acquired; E06.3 Autoimmune thyroiditis; E78.5 Hyperlipidemia, unspecified; N95.9 Unspecified menopausal and perimenopausal disorder; R68.89 Other general symptoms and signs; Z78.9 Other specified health status
CPT/HCPCS: 74183; A9585